=== PATIENT | female | born 1995 | race African-American/Black ===

== ENCOUNTER 2020-09-22 10:35 | Outpatient (CLI) | payer MEDICAID ==
[2020-09-22] MEDS ORDERED: ACETAMINOPHEN 325 MG TABLET PO ONE (11:03)
[2020-09-22] MEDS ORDERED: ACETAMINOPHEN 325 MG TABLET ONE (11:06)
[2020-09-22 11:40] LABS: APPEARANCE,URINE CLEAR; BILIRUBIN,URINE NEGATIVE (NEGATIVE); COLOR,URINE YELLOW; GLUCOSE, URINE NEGATIVE (NEGATIVE); KETONES,URINE NEGATIVE (NEGATIVE); LEUKOCYTE ESTERASE,URINE NEGATIVE (NEGATIVE); NITRITE,URINE NEGATIVE (NEGATIVE); PROTEIN,URINE NEGATIVE (NEGATIVE); URINE SPECIFIC GRAVITY 1.012
[2020-09-22 12:04] LABS: URINE AMPHETAMINES SCREEN NEGATIVE; URINE BARBITURATES SCREEN NEGATIVE; URINE BENZODIAZEPINES SCREEN NEGATIVE; URINE COCAINE SCREEN NEGATIVE; URINE MARIJUANA (THC) SCREEN NEGATIVE; URINE METHADONE SCREEN NEGATIVE; URINE PHENCYCLIDINE SCREEN NEGATIVE
== END 2020-09-22 11:43 | disposition home or self-care (01) ==
LOC: LC 10:35
PROVIDERS: ATTEND Obstetrics & Gynecology
DX: O26.892 Other specified pregnancy related conditions, second trimester (principal); R10.9 Unspecified abdominal pain; Z3A.22 22 weeks gestation of pregnancy
CPT/HCPCS: 81001; 80307; 59899; J3490

== ENCOUNTER 2020-09-23 14:05 | Emergency (ER) | payer MEDICAID ==
[2020-09-23 14:28] VITALS: BP 128/61
--- NOTE | 2020-09-23 14:52 | ER Document Report ---
ED Medical Screen (RME) - General Chief Complaint: Abdominal Pain Stated Complaint: ABDOMINAL PAIN Time Seen by Provider: 09/23/20 14:47 Primary Care Provider: GEORGE STUBBS MD [Primary Care Provider] - Follow up as needed Mode of Arrival: Ambulatory Information source: Patient Notes: 25-year-old female presents to ED for complaint of abdominal pain for the last 3 days. She states Wednesday she went to [facility] and they sent her to the ER and then the labor and delivery and then they sent her home. She is 22 weeks . She states she has had a hernia in the past when she was and this was painful but they did not check at the hernia. She states she has continued to have bad pain so she went to the ER here yesterday they sent her to labor and delivery they told her the same thing and sent her home she went to [facility] this morning they told her that it was possibly a hernia and to come to the emergency room with do not go to labor and delivery. So I have ordered a transabdominal OB ultrasound as well is a abdominal limited ultrasound as well as have ordered blood in urine. I have greeted and performed a rapid initial assessment of this patient. A comprehensive ED assessment and evaluation of the patient, analysis of test results and completion of medical decision making process will be conducted by an additional ED providers. - Related Data Allergies/Adverse Reactions: peanut Allergy (Verified 09/22/20 11:05) Physical Exam - Vital signs Vitals: Temp Pulse Resp BP Pulse Ox 98.7 F 66 16 128/61 H 99 09/23/20 02:26 09/23/20 02:26 09/23/20 02:26 09/23/20 02:26 09/23/20 02:26 Course - Vital Signs Vital signs: Temp Pulse Resp BP Pulse Ox 98.7 F 66 16 128/61 H 99 09/23/20 02:26 09/23/20 02:26 09/23/20 02:26 09/23/20 02:26 09/23/20 02:26 Doctor's Discharge - Discharge Referrals: GEORGE STUBBS MD [Primary Care Provider] - Follow up as needed
[2020-09-23 15:58] LABS: ABSOLUTE MONOCYTES (AUTO) 0.5 10^3/uL (0.1-1.4); BASOPHILS % (AUTO) 0.5 % (0-2); EOSINOPHILS % (AUTO) 0.4 % (0-6); HEMOGLOBIN 12.1 g/dL (12.0-15.5); LYMPHOCYTES % (AUTO) 26.2 % (13-45); MEAN CORPUSCULAR HEMOGLOBIN 27.7 pg (27.0-33.4); MEAN CORPUSCULAR HGB CONC 34.6 g/dL (32.0-36.0); MEAN CORPUSCULAR VOLUME 80 fl (80-97); MONOCYTES % (AUTO) 6.7 % (3-13); PLATELET COUNT 259 10^3/uL (150-450); RED BLOOD COUNT 4.36 10^6/uL (3.72-5.28); RED CELL DISTRIBUTION WIDTH 13.5 % (11.5-14.0); SEGMENTED NEUTROPHILS % (AUTO) 66.2 % (42-78); TOTAL CELLS COUNTED % (AUTO) 100 %; WHITE BLOOD COUNT 7.5 10^3/uL (4.0-10.5)
--- NOTE | 2020-09-23 16:15 | RADIOLOGY REPORT (SQ) ---
EXAM DESCRIPTION: U/S ABDOMEN LIMITED W/O DOP IMAGES COMPLETED DATE/TIME: 09/23/2020 3:57 pm REASON FOR STUDY: Abdominal pain 22 weeks possible hernia COMPARISON: None. TECHNIQUE: Dynamic and static grayscale and color Doppler images of the area palpable abnormality wyatt perior to the umbilicus were obtained. LIMITATIONS: None. FINDINGS: Superior to the umbilicus there is a subcutaneous cystic structure that measures 1.4 x 1.7 x 0.9 cm ; along the posterior margin of the structure there is curvilinear echogenic area that has a similar signature to bowel. IMPRESSION: Subcutaneous cystic structure superior to the umbilicus that measures 1.4 x 1.7 x 0.9 cm ; along the posterior margin of the structure there is curvilinear echogenic area that has a similar signature to bowel - could this represent a supraumbilical hernia sac that contains fluid and a port ion of bowel wall? TECHNICAL DOCUMENTATION: JOB ID: [id number] 2010 [employer]- All Rights Reserved Reading location - IP/workstation name: [email or web address]
[2020-09-23 16:16] LABS: ALBUMIN 3.8 g/dL (3.5-5.0); ALKALINE PHOSPHATASE 94 U/L (38-126); ANION GAP 10 (5-19); ASPARTATE AMINO TRANSFERASE 17 U/L (14-36); BILIRUBIN,DIRECT 0.1 mg/dL (0.0-0.4); BILIRUBIN,TOTAL 0.6 mg/dL (0.2-1.3); BLOOD UREA NITROGEN 4 mg/dL (7-20); CALCIUM 9.2 mg/dL (8.4-10.2); CARBON DIOXIDE 22 mmol/L (22-30); CHLORIDE 105 mmol/L (98-107); POTASSIUM 3.7 mmol/L (3.6-5.0); TOTAL PROTEIN 7.3 g/dL (6.3-8.2)
--- NOTE | 2020-09-23 16:17 | RADIOLOGY REPORT (SQ) ---
EXAM DESCRIPTION: U/S OB LIMITED IMAGES COMPLETED DATE/TIME: 09/23/2020 3:57 pm REASON FOR STUDY: Abdominal pain 22 weeks COMPARISON: None. TECHNIQUE: Limited transabdominal grayscale ultrasound for evaluation of specific requested obstetri ruben parameters. LIMITATIONS: None. FINDINGS: EGA: 22 weeks 6 days. CERVICAL LENGTH: 2.9 cm. Closed. MARCUS: 22.5 cm. LVP: 11.7 x 5.2 cm. FHR: 163 beats per minute. PRESENTATION: Vertex. PLACENTA: Anterior. ANATOMY: Not assessed OTHER: No other findings. IMPRESSION: LIMITED OBSTETRICAL ULTRASOUND WITH MEASURED PARAMETERS DELINEATED ABOVE. Trimester of : Second trimester - 13 weeks 1 day to 27 weeks 6 days. TECHNICAL DOCUMENTATION: JOB ID: [id number] 2010 [employer]- All Rights Reserved Reading location - IP/workstation name: [email or web address]
[2020-09-23 16:33] LABS: GLUCOSE 65 mg/dL (75-110)
== END 2020-09-23 18:05 | disposition left against medical advice (07) ==
LOC: ER 14:05
DX: Z53.21 Procedure and treatment not carried out due to patient leaving prior to being seen by health care provider (principal)
CPT/HCPCS: 36415; 76705; 76815; 80053; 84702; 85025

== ENCOUNTER 2020-09-30 22:38 | Outpatient (CLI) | payer MEDICAID ==
[2020-09-30 23:17] LABS: APPEARANCE,URINE SLIGHTLY-CLOUDY; BILIRUBIN,URINE NEGATIVE (NEGATIVE); COLOR,URINE YELLOW; GLUCOSE, URINE NEGATIVE (NEGATIVE); KETONES,URINE NEGATIVE (NEGATIVE); LEUKOCYTE ESTERASE,URINE NEGATIVE (NEGATIVE); NITRITE,URINE NEGATIVE (NEGATIVE); PROTEIN,URINE NEGATIVE (NEGATIVE); URINE SPECIFIC GRAVITY 1.009; UROBILINOGEN,URINE NEGATIVE mg/dL (<2.0)
--- NOTE | 2020-09-30 23:26 | L&D Progress Notes ---
PROGRESS NOTES Datetime Report Generated by CPN: 09/30/2020 23:26 PROGRESS NOTE Impression: Reassuring Heart Rate Comment: Pt presents with pain after eating. She has trouble describing the pain and location but it is above the umbilicus and worse after eating tacos tonight. I suspect it may be her gallbladder. We will plan labs and sono. I also called General Surgery but no answer yet. FETUS A FHR - Baseline: 140 Variability: Moderate 6-25bpm Decelerations: None FHR Category: Category I : 23.0 SIGNATURE SIGNATURE: [id number] Signature: with User ID: [email or web address]
[2020-09-30 23:28] LABS: URINE AMPHETAMINES SCREEN NEGATIVE; URINE BARBITURATES SCREEN NEGATIVE; URINE BENZODIAZEPINES SCREEN NEGATIVE; URINE COCAINE SCREEN NEGATIVE; URINE MARIJUANA (THC) SCREEN NEGATIVE; URINE METHADONE SCREEN NEGATIVE; URINE PHENCYCLIDINE SCREEN NEGATIVE
[2020-09-30] MEDS ORDERED: OXYCODONE-ACETAMINOPHEN 5-325 MG TABLET ONE (23:32)
[2020-09-30 23:53] LABS: ABSOLUTE BASOPHILS # (AUTO) 0.1 10^3/uL (0.0-0.2); ABSOLUTE EOSINOPHILS # (AUTO) 0.1 10^3/uL (0.0-0.6); ABSOLUTE LYMPHOCYTES (AUTO) 2.1 10^3/uL (0.5-4.7); ABSOLUTE MONOCYTES (AUTO) 0.7 10^3/uL (0.1-1.4); ABSOLUTE NEUT (AUTO) 5.4 10^3/uL (1.7-8.2); BASOPHILS % (AUTO) 0.6 % (0-2); EOSINOPHILS % (AUTO) 0.8 % (0-6); HEMATOCRIT 33.3 % (36.0-47.0); HEMOGLOBIN 11.8 g/dL (12.0-15.5); LYMPHOCYTES % (AUTO) 25.4 % (13-45); MEAN CORPUSCULAR HGB CONC 35.5 g/dL (32.0-36.0); MEAN CORPUSCULAR VOLUME 79 fl (80-97); MONOCYTES % (AUTO) 8.3 % (3-13); PLATELET COUNT 238 10^3/uL (150-450); RED BLOOD COUNT 4.23 10^6/uL (3.72-5.28); RED CELL DISTRIBUTION WIDTH 13.6 % (11.5-14.0); SEGMENTED NEUTROPHILS % (AUTO) 64.9 % (42-78); TOTAL CELLS COUNTED % (AUTO) 100 %; WHITE BLOOD COUNT 8.3 10^3/uL (4.0-10.5)
[2020-09-30] MEDS ORDERED: OXYCODONE-ACETAMINOPHEN 5-325 MG TABLET PO ONE (23:59)
[2020-09-30] MEDS ORDERED: ONDANSETRON HCL INJ/PF 4 MG/2 ML SDV IV ONE (23:59)
[2020-10-01] MEDS ORDERED: PROMETHAZINE HCL INJ 25 MG/1 ML VIAL ONE (00:03)
[2020-10-01] MEDS ORDERED: NALBUPHINE HCL INJ 10 MG/1 ML AMPULE ONE (00:03)
[2020-10-01 00:23] LABS: ALBUMIN 3.2 g/dL (3.5-5.0); ALKALINE PHOSPHATASE 75 U/L (38-126); ANION GAP 8 (5-19); ASPARTATE AMINO TRANSFERASE 19 U/L (14-36); BILIRUBIN,DIRECT 0.1 mg/dL (0.0-0.4); BILIRUBIN,TOTAL 0.3 mg/dL (0.2-1.3); CALCIUM 9.6 mg/dL (8.4-10.2); CARBON DIOXIDE 22 mmol/L (22-30); CHLORIDE 105 mmol/L (98-107); GLUCOSE 91 mg/dL (75-110); POTASSIUM 3.2 mmol/L (3.6-5.0); TOTAL PROTEIN 6.5 g/dL (6.3-8.2)
[2020-10-01 00:25] LABS: BLOOD UREA NITROGEN 5 mg/dL (7-20)
--- NOTE | 2020-10-01 01:36 | RADIOLOGY REPORT (SQ) ---
Ultrasound right upper quadrant on 10/01/2020 at 12:40 AM CLINICAL INDICATION: Right upper quadrant pain after eating COMPARISON: None FINDINGS: Multiple sonographic images are obtained throughout the right upper quadrant, both transverse and sagittal images are obtained. Visualized pancreas is unremarkable. Visualized aorta is unremarkable. Visualized liver is homogeneous without focal lesion or evidence of intrahepatic biliary ductal dilatation. A few small echogenic foci with posterior shadowing are noted in the gallbladder consistent with small gallstones. No gallbladder wall thickening or pericholecystic fluid is noted. The portal vein is patent and with a normal directional flow. The common duct measures 3 mm which is within normal limits mitigating against obstruction of the biliary tree. Right kidney shows no hydronephrosis. IMPRESSION: Cholelithiasis, otherwise unremarkable.
== END 2020-10-01 02:10 | disposition home or self-care (01) ==
LOC: LC 22:38
PROVIDERS: ATTEND Obstetrics & Gynecology
DX: O26.892 Other specified pregnancy related conditions, second trimester (principal); R10.9 Unspecified abdominal pain; Z3A.23 23 weeks gestation of pregnancy
CPT/HCPCS: 36415; 85025; 80053; 81001; 80307; 76705; 59899; J2300; J2550